=== PATIENT | female | born 1990 | race African-American/Black ===

== ENCOUNTER 2016-12-03 13:22 | Emergency (ER) | payer OTHER ==
[~2016-12-03] VITALS: Ht 175.3 cm; Wt 145.0 kg
[2016-12-03 13:30] VITALS: TEMP 37; Ht 175.3 cm; Wt 145.0 kg
[2016-12-03] MEDS ORDERED: SODIUM CHLORIDE 0.9% 1000ML 1,000 ML IV STA (14:02)
[2016-12-03 14:37] LABS: BASO % 0.3 %; BASO ABS # 0.02 K/uL (0-0.2); COMPLETE YES; EOS % 1.5 %; HEMATOCRIT 40.5 % (37-47); IG% 0.1 %; LYMPH % 38.7 %; LYMPH ABS # 3.05 K/uL (1.2-3.4); MEAN CELL VOLUME 89.6 fL (80-100); MEAN CORPUSCULAR HEMOGLOBIN 30.3 pg (25-34); MEAN CORPUSCULAR HGB CONC 33.8 g/dl (32-36); MEAN PLATELET VOLUME 9.5 fL (7.4-10.4); MONO % 6.2 %; NEUT % 53.2 %; PLATELET COUNT 355 K/uL (130-400); RED BLOOD COUNT 4.52 M/uL (4.2-5.4); WHITE BLOOD COUNT 7.89 K/uL (4.8-10.8)
[2016-12-03 14:50] LABS: MANUAL MICROSCOPIC REQUIRED? NO; REVIEW REQ? NO; URINE APPEARANCE CLEAR (CLEAR); URINE BILIRUBIN NEG (NEG); URINE COLOR YELLOW; URINE EPITHELIAL CELL AUTO >30 /lpf (0-5); URINE NITRITE NEG (NEG); URINE SPECIFIC GRAVITY 1.023 (1.000-1.030); UROBILINOGEN NEG (NEG); ZZUR CULT IF INDIC CLEAN CATCH NO
[2016-12-03 14:55] LABS: ALT/SGPT 22 U/L (12-78); AST/SGOT 9 U/L (15-37); BLOOD UREA NITROGEN 6 mg/dl (7-18); BUN/CREATININE RATIO 7.7 (10-20); CALCIUM 8.5 mg/dl (8.5-10.1); CARBON DIOXIDE 28 mmol/L (21-32); CHLORIDE 107 mmol/L (98-107); GLUCOSE 94 mg/dl (70-99); POTASSIUM 3.8 mmol/L (3.5-5.1); SODIUM 142 mmol/L (136-145)
[2016-12-03 14:57] LABS: ALKALINE PHOSPHATASE 68 U/L (45-117)
--- NOTE | 2016-12-03 15:37 | DIAGNOSTIC IMAGING REPORT ---
CT HEAD WITHOUT CONTRAST (CT) CLINICAL HISTORY: Tingling sensation in the limbs. COMPARISON STUDY: No previous studies for comparison. TECHNIQUE: Axial CT of the brain is performed from the vertex to the skull base. IV contrast was not administered for this examination. CT DOSE: 537.48 mGy.cm FINDINGS: No intra or extra-axial mass lesions are visualized. There is no CT evidence of acute cortical infarction. There is no evidence of midline shift. There is no acute hemorrhage. No calvarial fractures are visualized. There is no evidence of pathologic ventricular dilatation. There is no evidence of acute sinusitis IMPRESSION: Normal noncontrast head CT. Electronically signed by: Shashank Cosby M.D. 12/03/2016 3:35 PM Dictated Date/Time: 12/03/2016 3:34 PM
[2016-12-03 15:45] VITALS: BP 133/81; PULSE 52; O2SAT 99
--- NOTE | 2016-12-03 21:23 | EMERGENCY ROOM VISIT NOTE ---
History Report prepared by Jelaniibzelalem: Yoli Parra Under the Supervision of: Dr. Lawson Onofre D.O. First contact with patient: 13:47 Chief Complaint: FACIAL PAIN/INJURY Stated Complaint: LEFT JAW MUSCLE SPASMS/ TINGLING LIMS History of Present Illness The patient is a 26 year old female who presents to the Emergency Room with complaints of resolved left jaw pain that occurred around 1130 today. The patient states that she was talking with her mentor today when she noticed that the left side of her jaw contracted and states that she could not open her mouth. She states that her jaw then loosened, but states that she has noticed spasms to the left side of her jaw. The patient states that she currently has a right ear infection, but denies being on any current antibiotics. She states that over the last several months she has had intermittent tingling to her limbs but nothing today. The patient states that she has noticed them equally on her right and left sides. Pt denies headache, change in vision, cough, runny nose, fevers, chest pain, shortness of breath, nausea, vomiting, diarrhea , pain with urination, and melena. Source of History: patient Onset: 1130 today Position: jaw (left) Timing: resolved Note: Associated Symptoms: jaw spasms, current right ear infection Review of Systems See HPI for pertinent positives & negatives. A total of 10 systems reviewed and were otherwise negative. Past Medical & Surgical Medical Problems: (1) Asthma Family History Hypertension Social History Smoking Status: Light Tobacco Smoker Alcohol Use: none Drug Use: none Housing Status: lives with roommate Occupation Status: [employer] student Current/Historical Medications No Active Prescriptions or Reported Meds Allergies Coded Allergies: Diphenhydramine (Verified Allergy, Intermediate, throat swelling, 12/03/16) Ibuprofen (Verified Allergy, Intermediate, throat swelling, 12/03/16) Uncoded Allergies: SHELL FISH (Allergy, Unknown, throat swelling, 08/20/16) Physical Exam Vital Signs Date Time Temp Pulse Resp B/P Pulse Ox O2 Delivery O2 Flow Rate FiO2 12/03/16 15:45 52 16 133/81 99 Room Air 12/03/16 14:29 56 18 136/72 98 Room Air 12/03/16 13:30 37.0 70 18 135/82 99 Room Air Physical Exam GENERAL: Sitting up in bed, obese, alert, well appearing, well nourished, no distress, non-toxic EYE EXAM: normal conjunctiva, PERRL and EOM's intact EARS: Mild erythema of right canal. OROPHARYNX: no exudate, no erythema, lips, buccal mucosa, and tongue normal and mucous membranes are moist NECK: supple, no nuchal rigidity, no adenopathy, non-tender LUNGS: Clear to auscultation. Normal chest wall mechanics HEART: no murmurs, S1 normal and S2 normal ABDOMEN: abdomen soft, non-tender, normo-active bowel sounds, no masses, no rebound or guarding. BACK: Back is symmetrical on inspection and there is no deformity, no midline tenderness, no CVA tenderness. SKIN: no rashes and no bruising UPPER EXTREMITIES: upper extremities are grossly normal. LOWER EXTREMITIES: No pitting edema. NEURO EXAM: Normal sensorium, cranial nerves II-XII intact, normal speech, no weakness of arms, no weakness of legs. No drift. Finger to nose intact. Gross sensation intact. Medical Decision & Procedures ER Provider Diagnostic Interpretation: CT:Per my review, radiologist interpretation. CT HEAD WITHOUT CONTRAST (CT) CLINICAL HISTORY: Tingling sensation in the limbs. COMPARISON STUDY: No previous studies for comparison. TECHNIQUE: Axial CT of the brain is performed from the vertex to the skull base. IV contrast was not administered for this examination. CT DOSE: 537.48 mGy.cm FINDINGS: No intra or extra-axial mass lesions are visualized. There is no CT evidence of acute cortical infarction. There is no evidence of midline shift. There is no acute hemorrhage. No calvarial fractures are visualized. There is no evidence of pathologic ventricular dilatation. There is no evidence of acute sinusitis IMPRESSION: Normal noncontrast head CT. Electronically signed by: Shashank Cosby M.D. 12/03/2016 3:35 PM Dictated Date/Time: 12/03/2016 3:34 PM Laboratory Results 12/03/16 14:17 Red Blood Count 4.52, Mean Corpuscular Volume 89.6, Mean Corpuscular Hemoglobin 30.3, Mean Corpuscular Hemoglobin Concent 33.8, Mean Platelet Volume 9.5, Neutrophils (%) (Auto) 53.2, Lymphocytes (%) (Auto) 38.7, Monocytes (%) (Auto) 6.2, Eosinophils (%) (Auto) 1.5, Basophils (%) (Auto) 0.3, Neutrophils # (Auto) 4.20, Lymphocytes # (Auto) 3.05, Monocytes # (Auto) 0.49, Eosinophils # (Auto) 0.12, Basophils # (Auto) 0.02 12/03/16 14:17 Test 12/03/16 14:17 White Blood Count 7.89 K/uL (4.8-10.8) Red Blood Count 4.52 M/uL (4.2-5.4) Hemoglobin 13.7 g/dL (12.0-16.0) Hematocrit 40.5 % (37-47) Mean Corpuscular Volume 89.6 fL (80-100) Mean Corpuscular Hemoglobin 30.3 pg (25-34) Mean Corpuscular Hemoglobin Concent 33.8 g/dl (32-36) Platelet Count 355 K/uL (130-400) Mean Platelet Volume 9.5 fL (7.4-10.4) Neutrophils (%) (Auto) 53.2 % Lymphocytes (%) (Auto) 38.7 % Monocytes (%) (Auto) 6.2 % Eosinophils (%) (Auto) 1.5 % Basophils (%) (Auto) 0.3 % Neutrophils # (Auto) 4.20 K/uL (1.4-6.5) Lymphocytes # (Auto) 3.05 K/uL (1.2-3.4) Monocytes # (Auto) 0.49 K/uL (0.11-0.59) Eosinophils # (Auto) 0.12 K/uL (0-0.5) Basophils # (Auto) 0.02 K/uL (0-0.2) RDW Standard Deviation 45.0 fL (36.4-46.3) RDW Coefficient of Variation 13.7 % (11.5-14.5) Immature Granulocyte % (Auto) 0.1 % Immature Granulocyte # (Auto) 0.01 K/uL (0.00-0.02) Urine Color YELLOW Urine Appearance CLEAR (CLEAR) Urine pH 6.0 (4.5-7.5) Urine Specific [place] 1.023 (1.000-1.030) Urine Protein NEG (NEG) Urine Glucose (UA) NEG (NEG) Urine Ketones NEG (NEG) Urine Occult Blood NEG (NEG) Urine Nitrite NEG (NEG) Urine Bilirubin NEG (NEG) Urine Urobilinogen NEG (NEG) Urine Leukocyte Esterase NEG (NEG) Urine WBC (Auto) 1-5 /hpf (0-5) Urine RBC (Auto) 0-4 /hpf (0-4) Urine Hyaline Casts (Auto) 1-5 /lpf (0-5) Urine Epithelial Cells (Auto) >30 /lpf (0-5) Urine Bacteria (Auto) NEG (NEG) Urine Test NEG (NEG) Anion Gap 7.0 mmol/L (3-11) Est Creatinine Clear Calc Drug Dose 164.4 ml/min Estimated GFR () 117.9 Estimated GFR (Non- 101.8 BUN/Creatinine Ratio 7.7 (10-20) Calcium Level 8.5 mg/dl (8.5-10.1) Total Bilirubin 0.4 mg/dl (0.2-1) Direct Bilirubin < 0.1 mg/dl (0-0.2) Aspartate Amino Transf (AST/SGOT) 9 U/L (15-37) Alanine Aminotransferase (ALT/SGPT) 22 U/L (12-78) Alkaline Phosphatase 68 U/L (45-117) Total Protein 7.3 gm/dl (6.4-8.2) Albumin 3.3 gm/dl (3.4-5.0) Lipase 76 U/L (73-393) Laboratory results per my review. Medications Administered Medications (Trade) Dose Ordered Sig/Amina Route Start Time Stop Time Status Last Admin Dose Admin Sodium Chloride (Nss 1000ml) 1,000 ml @ 999 mls/hr Q1H1M STAT IV 12/03/16 14:02 12/03/16 15:02 DC 12/03/16 14:28 999 MLS/HR ED Course ED COURSE: Vital signs were reviewed and showed normal vitals The patients medical record was reviewed The above diagnostic studies were performed and reviewed. ED treatments and interventions as stated above. 1354: The patient was evaluated in room B5. A complete history and physical examination was performed. 1402: Ordered Sodium Chloride 1000 ml @ 999 mls/hr IV. 1505: I reevaluated the patient and she is doing well with no further complaints 1552: Upon reevaluation, the patient is resting comfortably.I discussed my findings with the patient and she understands and agrees with the treatment plan. Based on the patients age, coexisting illnesses, exam and lab findings the decision to treat as an outpatient was made. The patient remained stable while under my care. The patient appeared well at the time of discharge. Medical Decision Differential Diagnosis includes but is not limited to ischemic Stroke, hemorrhagic stroke, bells palsy, mass, neoplasm, migraine headache, seizure, subarachnoid hemorrhage, TIA, and transient global amnesia. Patient is a 26-year-old female with no sniffing a past medical history that presents the ER for tightening of her jaw. She notes that she had a spasmodic the left side of her face and was unable to open her jaw. This came and went several times over the course of an hour. She denies any weakness or numbness today. She does note a remote history of intermittent paresthesias. Labs showed no significant leukocytosis or anemia. BMP along with LFTs, bilirubin and lipase were unremarkable. UA was negative. was negative. CT head was unremarkable. Patient was completely neurologically intact. She is updated bedside and based on her symptoms I feel as though this is most consistent with a master spasm on the left. The intermittent paresthesias that she has had over the past month I am uncertain of the etiology of this but she needs to be worked up by her primary care doctor and I stressed the importance of this to her. This could be benign versus other neurologic causes such as MS etc. Discussed with Pt concerning signs and symptoms to watch out for. Pt was instructed to follow up with their PCP and discussed with the patient their option to return to the ED at anytime for persistent or worsening symptoms. The appropriate anticipatory guidance and out-patient management, including indications for return to the emergency department, were explained at length to the patient and understood. Impression Primary Impression: Muscle spasm Scribe Attestation The scribe's documentation has been prepared under my direction and personally reviewed by me in its entirety. I confirm that the note above accurately reflects all work, treatment, procedures, and medical decision making performed by me. Departure Information Dispostion Home / Self-Care Prescriptions No Active Prescriptions or Reported Meds Referrals No Doctor, Assigned (PCP) Forms HOME CARE DOCUMENTATION FORM, IMPORTANT VISIT INFORMATION Patient Instructions Muscle Spasm, My [facility] Additional Instructions Please follow up with your primary care doctor with in the next 24 hours. Any worsening of your symptoms, please return to the ED immediately. This includes confusion, numbness or weakness in arms or legs, slurred speech, change in vision, or any other concerning signs or symptoms from your standpoint.
== END 2016-12-03 16:01 | disposition home or self-care (01) ==
LOC: C.EDB 13:24
DX: M62.838 Other muscle spasm (principal); J45.909 Unspecified asthma, uncomplicated; F17.200 Nicotine dependence, unspecified, uncomplicated; Z88.6 Allergy status to analgesic agent; Z88.8 Allergy status to other drugs, medicaments and biological substances; Z91.018 Allergy to other foods; Z82.49 Family history of ischemic heart disease and other diseases of the circulatory system

== ENCOUNTER 2017-06-30 12:03 | Emergency (ER) | payer OTHER ==
[2017-06-30 12:05] VITALS: TEMP 37.3
[2017-06-30] MEDS ORDERED: PRLSR20 PO (12:29)
[2017-06-30] MEDS ORDERED: DIAZ-165 PO (12:29)
[2017-06-30] MEDS ORDERED: HYDR-3419 PO (12:29)
[2017-06-30] MEDS ORDERED: HYDR-5688 PO (12:30)
--- NOTE | 2017-06-30 13:10 | DIAGNOSTIC IMAGING REPORT ---
L KNEE 3 VIEWS CLINICAL HISTORY: Left knee pain s/p fall trauma. Pain. COMPARISON: None. DISCUSSION: The bones and joint spaces appear intact. There is no evidence of fracture, dislocation or bony disease. There is no evidence for soft tissue swelling. IMPRESSION: Negative study. The above report was generated using voice recognition software. It may contain grammatical, syntax or spelling errors. Electronically signed by: Jeremy Levine M.D. 06/30/2017 1:09 PM Dictated Date/Time: 06/30/2017 1:07 PM
--- NOTE | 2017-06-30 14:08 | EMERGENCY ROOM VISIT NOTE ---
History First contact with patient: 12:11 Chief Complaint: KNEEPAIN Stated Complaint: LEFT KNEE INJURY/PAIN History of Present Illness The patient is a 26 year old female who presents to the Emergency Room via private vehicle with complaints of "left knee injury/pain". The patient states that this past Thursday she was in [place] and was dancing. She states that around 8 PM she bent the leg, fell and injured her left knee. She notes that she was seen at the hospital down there, specifically the [facility]. She was told that she was unable to get an emergent MRI. She notes that she was then seen back home in [place] at [facility]. She notes that she was told they could not do emergent MRIs. She was informed that she is to follow-up with orthopedics. She then went to [facility] today who informed her that she could be seen there at 4 PM, but would be referred to orthopedics. She notes that all the x-rays have been normal. She notes she is in a knee immobilizer and crutches. Review of Systems A complete 6-point Review of Systems was discussed with the patient, with pertinent positives and negatives listed in the History of Present Illness. All remaining Review of Systems questions can be considered negative unless otherwise specified. Past Medical/Surgical History Medical Problems: (1) Asthma Family History Hypertension Social History Smoking Status: Former Smoker Alcohol Use: none Drug Use: none Housing Status: lives with roommate Occupation Status: [employer] student Current/Historical Medications Scheduled Diazepam (Valium), 5 MG PO QID Omeprazole (Prilosec), 20 MG PO DAILY Scheduled PRN Hydrocodone/Acetaminophen 5MG/325MG ([place] 5MG/325MG), 1 TABLET PO Q6 PRN for Pain Physical Exam Vital Signs Date Time Temp Pulse Resp B/P (MAP) Pulse Ox O2 Delivery O2 Flow Rate FiO2 06/30/17 14:51 60 134/80 96 06/30/17 13:20 80 18 121/77 98 Room Air 06/30/17 12:05 37.3 84 20 114/72 99 Room Air Physical Exam VITAL SIGNS - Vital signs and nursing notes were reviewed. Stable. GENERAL - 26-year-old female appearing her stated age who is in no acute distress. Communicates well with provider and answers questions appropriately. SKIN - Without rashes. EXTREMITIES - No clubbing or peripheral cyanosis. No pretibial edema present. There is tenderness to palpation overlying the patient's left anterior knee. She is neurovascularly intact distally. Excellent pedal pulses. +5/5 strength noted in UE/LE bilaterally. Decreased range of motion secondary to tenderness. Medical Decision & Procedures ER Provider Diagnostic Interpretation: L KNEE 3 VIEWS CLINICAL HISTORY: Left knee pain s/p fall trauma. Pain. COMPARISON: None. DISCUSSION: The bones and joint spaces appear intact. There is no evidence of fracture, dislocation or bony disease. There is no evidence for soft tissue swelling. IMPRESSION: Negative study. The above report was generated using voice recognition software. It may contain grammatical, syntax or spelling errors. Electronically signed by: Jeremy Levine M.D. 06/30/2017 1:09 PM Dictated Date/Time: 06/30/2017 1:07 PM Medical Decision Patient was seen and evaluated as above. She presents to us today with left knee pain. Vital signs are stable. X-ray was obtained after verifying verbally no chance of . X-ray results as above. No acute process. I suspect she is likely experiencing a ligamentous injury or soft tissue contusion. No emergent process identified on exam. Patient was informed upon her results, and we're even able to secure her appointment tomorrow at 9:30 AM with [facility] orthopedics. She then began to cry, as we discussed she would have to have a referral ideally from [facility] for her insurance company to order this appointment. She then began to cry more, and notes that she feels nobody is caring about her emergency, I informed her that we are doing the best we can, and that similar to other ERs that she has been to in the past few days, doing emergent MRIs here are not routinely done. I informed her that her x-rays normal, she has anatomic alignment of the leg, and is neurovascularly intact. I informed her that although the pain, is certainly difficult, and her difficulty walking I informed her that at this time there is no emergent surgery indicated. I informed her that an MRI would not size changer. She noted that she would like to be admitted room initially discuss this. She informed me that she would have difficulty living in her apartment. I informed her that I certainly could try getting her to the hospital for her difficulties with ambulation, but then she informed me that she spoke with various individuals that she will return to [place] to follow- up or she can be taken care of by her family. I believe this is reasonable. In the evaluation and treatment of this patient, the following differential diagnoses were considered: Patellar Fracture, Tibial Plateau Fracture, Distal Femur Fracture, ACL Injury, PCL Injury, Collateral Ligament Injury, Pes Anserine Bursitis, [place] Fracture. Impression Primary Impression: Knee pain Departure Information Dispostion Home / Self-Care Condition GOOD Referrals [facility] (PCP) Patient Instructions My [facility] Additional Instructions You have been treated in the Emergency Department for Knee Pain. For pain control, you can use the following [id number] medicines: - Regular strength (325mg/tab) Tylenol (acetaminophen) 2 tabs every 4-6 hours as needed. Do not exceed 12 tablets in a 24 hour period. Avoid taking more than 3 grams (3000 mg) of Tylenol per day. This includes any other sources of acetaminophen you may take on a regular basis. If this is a recent injury (<24 hrs), ice can be applied to the area of pain for the first 3 days to help decrease pain and inflammation. Ice massages can be performed by freezing water in a paper cup, peeling back the cup to expose the ice and then massaging over the affected area. Please follow up as soon as possible as we have discussed in [place]. Keep the knee brace in place until cleared by Orthopedics. Use the crutches you have been provided to keep ALL weight off of the knee until weight bearing is tolerable. Return to the Emergency Department if your current symptoms worsen despite treatment course outlined above. [phone] with any questions or concerns.
[2017-06-30 14:51] VITALS: BP 134/80; PULSE 60; O2SAT 96
== END 2017-06-30 14:52 | disposition home or self-care (01) ==
LOC: C.EDB 12:04 → C.EDD 14:52
DX: M25.562 Pain in left knee (principal); J45.909 Unspecified asthma, uncomplicated; Z79.899 Other long term (current) drug therapy; Z87.891 Personal history of nicotine dependence; Z86.79 Personal history of other diseases of the circulatory system

== ENCOUNTER 2017-10-21 04:15 | Emergency (ER) | payer OTHER ==
[~2017-10-21] VITALS: Ht 175.3 cm; Wt 144.7 kg
[~2017-10-21 04:15] MED LIST: DIAZ-165 PO; HYDR-5688 PO; PRLSR20 PO
[2017-10-21 04:21] VITALS: TEMP 36.8; Ht 175.3 cm; Wt 144.7 kg
[2017-10-21] MEDS ORDERED: ALBUT/IPRATROP 3MG/0.5MG NEB 3 ML VIAL INH STA (04:38)
[2017-10-21] MEDS ORDERED: LIDOCAINE HCL 2% VISC SOLN 20 ML UDC MT STA (04:38)
[2017-10-21] MEDS ORDERED: DEXAMETHASONE **PF** INJ 10 MG/ML VIAL PO ONE (04:45)
[2017-10-21] MEDS ORDERED: ALBUTEROL HFA 8 GM INHALER INH STA (05:33)
--- NOTE | 2017-10-21 05:33 | EMERGENCY ROOM VISIT NOTE ---
History First contact with patient: 04:26 Chief Complaint: FLU LIKE SX Stated Complaint: BURNING EAR,SWOLLEN LYMPH NODES,DISLOCATED KNEE History of Present Illness The patient is a 26 year old female who presents to the Emergency Room with complaints of cough, congestion, wheezing, sore throat for the past 3 days. Patient does have asthma. Patient, as a subjective fever and chills with no documented temperature. Patient denies chest pain, dyspnea, productive cough, abdominal pain, neck stiffness, vomiting, diarrhea. Patient also complains of ongoing knee problems who follows with orthopedics at [place]. No new injury. She states she feels as if the knee is catching. Patient denies new trauma, numbness, tingling, weakness. Review of Systems An 10 system review of systems was completed with positives and pertinent negatives listed in the HPI. Past Medical/Surgical History Medical Problems: (1) Asthma Family History Hypertension Social History Smoking Status: Never Smoker Alcohol Use: none Drug Use: none Housing Status: lives with roommate Occupation Status: [employer] Current/Historical Medications No Active Prescriptions or Reported Meds Physical Exam Vital Signs Date Time Temp Pulse Resp B/P (MAP) Pulse Ox O2 Delivery O2 Flow Rate FiO2 10/21/17 04:21 36.8 76 18 138/87 98 Room Air Physical Exam VITALS: Vitals are noted on the nurse's note and reviewed by myself. Vital signs stable. GENERAL: Pleasant female speaking in full sentences, in no acute distress, nondiaphoretic, well-developed well-nourished. SKIN: The skin was without rashes, erythema, edema, or bruising. There is no tenting of the skin. Capillary reflex less than 2 seconds. HEAD: Normocephalic atraumatic. EARS: External auditory canals clear, tympanic membranes pearly lima without erythema or effusion bilaterally. EYES: Pupils equal round and reactive to light and accommodation. Conjunctivae without injection, sclerae without icterus. Extraocular movements intact. NOSE: Patent, turbinates without inflammation or discharge. No sinus tenderness. MOUTH: Mucous membranes moist. Pharynx with erythema without exudate. Uvula midline. Airway patent. Tongue does not deviate. NECK: Supple without nuchal rigidity. No lymphadenopathy. No thyromegaly. Cervical spine is nontender. No JVD. HEART: Regular rate and rhythm without murmurs gallops or rubs. LUNGS: Diffuse end expiratory wheezes, without rales or rhonchi. No dullness to percussion. No retractions or accessory muscle use. ABDOMEN: Positive bowel sounds x 4. Normal tympanic percussion. Soft, nontender, without masses or organomegaly. Roque sign negative. No guarding or rebound tenderness. MUSCULOSKELETAL: No muscle atrophy, erythema, or edema noted. Left knee full range of motion without pain. No tenderness to palpation. Normal gait. Strength 5/5 NEURO: Patient was alert and oriented to person place and time. No focal neurological deficits. Medical Decision & Procedures Medications Administered Medications (Trade) Dose Ordered Sig/Amina Route Start Time Stop Time Status Last Admin Dose Admin Dexamethasone Sodium Phosphate (Dexamethasone Inj Pf) 10 mg NOW ONCE PO 10/21/17 04:45 10/21/17 04:46 DC 10/21/17 04:50 10 MG Albuterol/ Ipratropium (Duoneb) 3 ml NOW STAT INH 10/21/17 04:38 10/21/17 04:39 DC 10/21/17 04:50 3 ML Lidocaine HCl (Viscous Lidocaine 2% Soln) 10 ml NOW STAT MT 10/21/17 04:38 10/21/17 04:39 DC 10/21/17 04:50 10 ML ED Course Prior records/ancillary studies reviewed. Triage Nursing notes reviewed. The patient's history was concerning for a cough, cold sx, sore throat and knee pain Differential diagnosis: Etiologies such as bronchitis, viral syndrome, tonsillitis, streptococcal pharyngitis, mononucleosis, peritonsillar abscess, retropharyngeal abscess, otitis, pneumonia, influenza, as well as others were entertained. ER treatment provided: Nebulizer, Decadron, viscous lidocaine On reassessment the patient felt better. Diagnostics interpreted by me: The labs revealed negative strep test. Sent for culture Imaging studies: Chest x-ray with no acute consolidation, pneumothorax or free of my interpretation This appears to be consistent with asthmatic bronchitis. Patient was advised to take medications as directed. She was advised that she started to have a productive productive cough or fever and worsening signs or symptoms to begin the antibiotics. At this point there is no pneumonia on the x-ray. Patient was agreeable to this. Patient also has ongoing knee problems. She was offered an x-ray declined. I felt this is reasonable. There is no new injury. She is advised to use the crutches and to follow-up with her orthopedic doctor in a few days or here in the ER sooner for severe pain, numbness, tingling, worsening signs or symptoms or as needed.. By the evaluation outlined above emergent etiologies such as peritonsillar abscess, retropharyngeal abscess, otitis, pneumonia, meningitis, urinary tract infection , sepsis, bacteremia, as well as others were deemed relatively unlikely. The pt informed about the findings as listed above. All questions were answered and pleased with the treatment. Return instructions were outlined and the patient was discharged in stable condition. Outpatient prescription management: Prednisone Referral: The patient was referred back to their primary care physician for follow-up in 2 to 3 days for a recheck of the current condition. Case reviewed with my attending Medical Decision as above Medication Reconcilliation Current Medication List: was personally reviewed by me Blood Pressure Screening Patient's blood pressure: Normal blood pressure Impression Primary Impression: Asthmatic bronchitis Additional Impression: Knee pain, left Departure Information Dispostion Home / Self-Care Condition GOOD Prescriptions No Active Prescriptions or Reported Meds Referrals [facility] (PCP) Patient Instructions My [facility] Additional Instructions Bronchitis: Albuterol Inhaler: Take 2 puffs four times daily for five days, then as needed. Prednisone 50mg: Once daily until the prescription is finished. It is best to take this earlier in the day as some patients note occasional difficulty falling asleep when taken in the late evening. Begin Zithromax if symptoms persist or you become more sick in the next few days. All antibiotics can cause diarrhea. If this occurs and you feel worse or it does not resolve in 1-2 days follow up with your doctor or return to the Emergency Department as this could be signs of serious underlying problems. Any medication can cause an allergic reaction, stop the pills immediately and return to the ER for rash, hives, breathing difficulties, or swelling. Rest and drink plenty of fluids. Avoid smoke/smoking, fumes, dust, or any triggers in the past that may have affected your breathing. Continue current medications. Return to the ER for chest pain, difficulty breathing, fevers, vomiting, worsening of your condition, or as needed. Follow up with your primary physician this week for a recheck of your current condition. ' Knee problem: Stay nonweightbearing on her knee until pain resolves. Ibuprofen(Motrin, Advil) may be used for fever or pain. Use 600mg every six hours as needed. Take with food. Avoid using more than 2400mg in a 24 hour period. Do not use 2400mg per day for more than three consecutive days without physician direction. Prolonged inappropriate use can lead to stomach upset or ulcers. This medication can be taken if you need to drive, work, or perform activities which may be dangerous when taking narcotic pain medication. (AND/OR) Acetaminophen(Tylenol) may be used for fever or pain. Use 1000mg every six hours as needed. Avoid using more than 4000mg in a 24 hour period. This medication can be taken if you need to drive, work, or perform activities which may be dangerous when taking narcotic pain medication. Use the crutches as instructed. Rest and elevate your injury. Continue current medications. Return to the ER immediately for any numbness, tingling, severe pain, extreme swelling in the extremity or as needed. Call your Orthopedics tomorrow to arrange follow up for your injury. Problem Qualifiers Primary Impression: Asthmatic bronchitis Asthma severity: mild Asthma persistence: persistent Asthma complication type: with acute exacerbation Qualified Codes: J45.31 - Mild persistent asthma with (acute) exacerbation
[2017-10-21] MEDS ORDERED: AZITTAB PO (05:35)
[2017-10-21] MEDS ORDERED: PRED50TA PO (05:35)
[2017-10-21 05:48] VITALS: BP 135/82; PULSE 78; O2SAT 99
--- NOTE | 2017-10-21 06:34 | DIAGNOSTIC IMAGING REPORT ---
CHEST 2 VIEWS ROUTINE HISTORY: 26 years-old Female cough acute cough COMPARISON: chest radiographs 08/21/2016 TECHNIQUE: PA and lateral views of the chest FINDINGS: Cardiomediastinal and hilar silhouettes are within normal limits. No pneumothorax, pleural effusion, focal airspace consolidation or overt pulmonary edema. The bones of the chest appear grossly intact. IMPRESSION: No acute process. The above report was generated using voice recognition software. It may contain grammatical, syntax or spelling errors. Electronically signed by: Hussein Jose M.D. 10/21/2017 6:33 AM Dictated Date/Time: 10/21/2017 6:30 AM
== END 2017-10-21 05:50 | disposition home or self-care (01) ==
LOC: C.EDB 04:16 → C.EDA 05:50
DX: R05 Cough (principal); R09.81 Nasal congestion; R06.2 Wheezing; R07.0 Pain in throat; J45.909 Unspecified asthma, uncomplicated; M25.562 Pain in left knee; Z82.49 Family history of ischemic heart disease and other diseases of the circulatory system